=== PATIENT | female | born 1975 | race Asian ===

== ENCOUNTER → 2020-03-17 07:53 | Outpatient (CLI) | payer BC, SELFPAY ==
--- NOTE | 2020-03-17 | DI.RAD.S_ITS ---
PROCEDURE: FL BARIUM SWALLOW INDICATIONS: Gastro-esophageal reflux disease without esophagit COMPARISON: None. FINDINGS: Function: There is normal esophageal peristalsis. Single episode of slight elicited gastroesophageal reflux. There is normal transit of a calibrated barium tablet through the esophagus into the stomach. Morphology: Air-contrast images demonstrate normal mucosal morphology. Single contrast views show no esophageal strictures, extrinsic mass effects, or diverticula. Limited images of the stomach demonstrate normal appearance. Note is made of a superior directed 4.1 cm diameter transverse duodenal diverticulum. IMPRESSION: No hiatal hernia or stricture found. Single episode of slight gastroesophageal reflux observed over the course of the study. Incidental note is made of a superior directed 4.1 cm diameter transverse duodenal diverticulum, showing no sign of adjacent inflammation. These generally are asymptomatic but can produce symptoms is obstructed and inflamed. Dictated by: Bandar Olivia M.D. on 03/17/2020 at 12:02 Approved by: Bandar Olivia M.D. on 03/17/2020 at 12:04
== END ==
PROVIDERS: Referring Provider Physician Assistant; Visit Provider Physician Assistant
DX: K21.9 Gastro-esophageal reflux disease without esophagitis (principal); K57.10 Diverticulosis of small intestine without perforation or abscess without bleeding
CPT/HCPCS: 74220

== ENCOUNTER → 2020-05-17 09:34 | Outpatient (CLI) | payer BC, SELFPAY ==
--- NOTE | 2020-05-17 | DI.US.S_ITS ---
PROCEDURE: US ABDOMEN COMPLETE INDICATIONS: unspecified abdominal pain TECHNIQUE: Real-time scanning was performed of the abdominal and retroperitoneal organs, with image documentation. COMPARISON: None. FINDINGS: Liver: Liver is normal in size and homogeneous in echotexture. Gallbladder: No findings of gallstones or sludge are seen. The gallbladder wall is not thickened, measuring 3 mm or less. No specific pericholecystic fluid is seen. The sonographic Brooke sign is negative. Biliary ducts: Intrahepatic bile ducts are non-dilated. Extrahepatic bile duct caliber measures 2-3 mm. Normal is 6-7 mm or less in diameter, or 10 mm or less post-cholecystectomy. Pancreas: Visualized portions of the pancreas are sonographically normal. Spleen: Spleen is normal in size and homogeneous in echotexture. Kidneys: Kidneys are normal in size and echotexture. Right kidney measures 10.3 cm long; left kidney measures 10.4 cm long. No hydronephrosis or nephrolithiasis. No solid masses. Aorta: Visualized aorta is normal in caliber at less than 3 cm. Iliacs: Proximal common iliac arteries are normal in caliber at less than 2.5 cm. IVC: Intrahepatic inferior vena cava is patent. Miscellaneous: No free abdominal fluid. IMPRESSION: No imaging explanation is found for this patient's presenting symptoms. The gallbladder demonstrates a normal sonographic appearance. No biliary dilatation is seen. Dictated by: Tavo Guerrero M.D. on 05/17/2020 at 11:05 Approved by: Tavo Guerrero M.D. on 05/17/2020 at 11:06
== END ==
PROVIDERS: PCP Physician Assistant; Referring Provider Student in an Organized Health Care Education/Training Program; Visit Provider Student in an Organized Health Care Education/Training Program
DX: R10.9 Unspecified abdominal pain (principal)
CPT/HCPCS: 76700

== ENCOUNTER → 2020-05-21 11:26 | Outpatient (CLI) | payer BC, SELFPAY ==
[2020-05-22 20:41] LABS: COVID19 Sendout Not Detected (Not Detect)
== END ==
PROVIDERS: PCP Physician Assistant; Visit Provider Nurse Practitioner
DX: Z11.59 Encounter for screening for other viral diseases (principal)
CPT/HCPCS: 87635

== ENCOUNTER 2020-05-24 13:33 | Day surgery (SDC) | payer BC, SELFPAY ==
[2020-05-24] VITALS (7 sets, daily range): BP systolic 94–128; BP diastolic 7–78; PULSE 93–123; RESP 10–17; TEMP 36.2–37.2; O2SAT 100; BMI 19.7
--- NOTE | 2020-05-24 | PATH_ITS ---
[facility] Accession Number: [id number] . 01 Material submitted: . PART A: colon - TRANSVERSE POLYP PART B: colon - SIGMOID POLYP X2 . 01 Clinical history: . SDC . 02 Diagnosis: A. Transverse Colon Polyp, Biopsy: Tubular adenoma. . B. Sigmoid Colon Polyps, Biopsies: Tubular adenoma x2. [facility] 05/26/2020 1505 Local . 02 Electronically signed: . Walter Anton MD, PhD, Pathologist NPI- [id number] . 01 Gross description: . Part A: TRANSVERSE POLYP: Received in formalin is 1 fragment(s) of greene, soft tissue measuring 0.4 x 0.3 x 0.2 cm submitted entirely in 1 cassette(s) Part B: SIGMOID POLYP X2: Received in formalin are 2 fragment(s) of greene, soft tissue measuring 0.6 x 0.3 x 0.3 cm to 0.4 x 0.4 x 0.3 cm submitted entirely in 1 cassette(s) /[facility] 05/25/2020 0959 Local . 02 Pathologist provided ICD-10: D12.3, D12.5 . 02 CPT . 436705, [id number] Performed at: 01 [facility] [address], [place], [place] [id number] MD Reid Brown MD Phone: [phone] Performed at: [address] [facility] [address] [place], [place] [id number] MD Marialuisa Jensen MD Phone: [phone]
--- NOTE | 2020-05-24 11:49 | PM.HP.1 ---
History of Present Illness History of Present Illness Date Patient Seen: 05/24/20 Chief complaint: SDC Narrative: 44-year-old female seen at our office on 05/03/2020 due to constipation and abdominal pain who is here for colonoscopy. Please refer to the office note for further details Patient History Medical History (Updated 05/24/20 @ 14:09 by Yoko Cote RN) Abdominal pain (Acute) Anxiety (Acute) Change in bowel habits (Acute) Constipation (Acute) Duodenal diverticulum (Acute) Gastric reflux (Acute) Gastritis (Acute) Hiatal hernia (Acute) Surgical History (Updated 05/24/20 @ 14:08 by Yoko Cote RN) History of appendectomy (Acute) History of esophagogastroduodenoscopy (EGD) (Acute) Meds Home Medications and Allergies Home Medications Medication Instructions Recorded Confirmed Type esomeprazole magnesium [Nexium] 40 mg PO DAILY 05/24/20 05/24/20 History Allergies Allergy/AdvReac Type Severity Reaction Status Date / Time No Known Drug Allergies Allergy Verified 05/24/20 13:47 Exam Narrative Exam Narrative: General: Patient is well developed, not in apparent distress Cardiovascular: Regular rate and rhythm, no murmurs, rubs, or gallops; no evidence of edema; no palpable abdominal aortic aneurysm Gastrointestinal: Normoactive bowel sounds, soft, nontender, nondistended, no rebound tenderness, no hepatosplenomegaly, no evidence of hernia Assessment & Plan Assessment & Plan narrative: 44-year-old female here for further evaluation of constipation and abdominal pain by means colonoscopy Regarding the procedure(s), the risks and potential complications, benefits, and alternatives (including not doing the procedure) were discussed with the patient. The risks include but are not limited to bleeding, splenic injury, infection, perforation which may require surgical intervention, missed lesions, and adverse reactions to sedative medicines. After a question and answer period, the patient agreed to proceed with the procedure(s) and gives informed consent.
[2020-05-24] MEDS: SODIUM CHLORIDE 0.9% 1,000 ML 70 ML IV (13:45)
--- NOTE | 2020-05-24 14:19 | P.OP.ENDO_ITS ---
Operative Date/Time/Diagnoses Date of procedure: 05/24/20 Procedure Notes Procedure in detail: Surgeon: Javier Milton MD Procedure: Colonoscopy with polypectomy Preoperative diagnosis: Constipation, change in bowel habits Postoperative diagnosis: Polyps x3 status post polypectomy, grade 1 internal hemorrhoids Medications: Conscious sedation using 5 mg IV of Midazolam and 150 mcg IV of Fentanyl Preanesthesia Assessment An H and P was performed/updated and the Px?s ASA class is 1. The procedure was discussed in detail with the patient. The potential risks and complications including infection, bleeding, missed lesions, perforation, need for surgery in case of perforation, prolonged hospital stay, and were explained. A brief question and answer period was allotted and once all questions were answered, informed consent was obtained. The patient was brought back to the procedure room and placed on standard monitoring. The patient?s vital signs were monitored continuously throughout the entire procedure. Prior to starting, a timeout was performed to confirm the patient?s identity, allergies, medications, and procedure. Procedure in detail The patient was placed in left lateral decubitus position and once adequate sedation was obtained a FLORENCE was performed. The digital rectal examination did not reveal any palpable lesions. The tip of the colonoscope was placed in the anal canal and advanced without difficulty all the way to the cecum which was identified by the appendiceal orifice and the ileocecal valve. Careful examination of all anders of the colon was performed with irrigation of any residual stool. In the ascending colon, there was note of a 2 mm sessile polyp which was removed by means of cold Jumbo forceps. Resection and retrieval was complete with minimal bleeding In the sigmoid colon, there was note of 2 sessile polyps measuring 4 and 5 mm which were removed by means of cold snare. Resection and retrieval was complete with minimal bleeding Retroflexion was performed in the rectum which revealed grade 1 internal hemorrhoids The patient tolerated the procedure well and will be brought back to the recovery area to be discharged once criteria are met. The prep was judged to be good and adequate to identify polyps less than 5 mm. The withdrawal time was 9 minutes. The total physician intraservice time was 16 minutes. Complications There were no complications and estimated blood loss was minimal. Recommendations: Resume previous diet Continue outPx medications Follow up pathology results Repeat colonoscopy in 3 or 5 or 7 years depending on pathology results Call our office ([facility] [place] [facility]) to schedule follow-up with Dr. Espinoza in 2-3 weeks An emergency contact number was given to the patient for any complications related to the procedure
[2020-05-24] MEDS: MIDAZOLAM 5 MG/5 ML VIAL IV (14:22)
[2020-05-24] MEDS: fentaNYL 250 MCG/5 ML INJ IV (14:22)
[2020-05-24] MEDS: ONDANSETRON 4 MG/2 ML INJ IV (14:24)
== END 2020-05-24 15:50 | disposition home or self-care (01) ==
PROVIDERS: PCP Physician Assistant; Referring Provider Physician Assistant; Visit Provider Internal Medicine Gastroenterology
PROC: 0DJD8ZZ Inspection of Lower Intestinal Tract, Via Natural or Artificial Opening Endoscopic (ICD-10-PCS; CPT 45378; principal; 2020-05-24 14:30)
DX: K59.00 Constipation, unspecified (principal); D12.3 Benign neoplasm of transverse colon; D12.5 Benign neoplasm of sigmoid colon; K64.0 First degree hemorrhoids
CPT/HCPCS: 45385; 45380; J2250; J2405; J3010

== ENCOUNTER 2023-09-17 13:25 | Day surgery (SDC) | payer BC, SELFPAY ==
--- NOTE | 2023-09-17 13:56 | P.HP_ITS ---
History of Present Illness History of Present Illness Date Patient Seen: 09/17/23 Chief complaint: SDC Narrative: Personal history of colon polyps [facility] Medical History (Updated 05/24/20 @ 14:09 by Yoko Cote, RN) Constipation Change in bowel habits Anxiety Abdominal pain Gastric reflux Gastritis Duodenal diverticulum Hiatal hernia Surgical History (Updated 05/24/20 @ 14:08 by Yoko Cote RN) History of appendectomy History of esophagogastroduodenoscopy (EGD) Social History household members: spouse and children Smoking Status: Never smoker alcohol intake: current Meds Home Medications and Allergies Allergies Allergy/AdvReac Type Severity Reaction Status Date / Time No Known Drug Allergies Allergy Verified 09/17/23 13:51 Exam Narrative Exam Narrative: Oropharynx free of lesions Chest clear to auscultation percussion Cardiac exam reveals no S3 or murmur Assessment & Plan Assessment & Plan narrative: History of 3 tubular adenomas 3 years ago. Need for follow-up colonoscopy. Risks, benefits, alternatives have been explained.
--- NOTE | 2023-09-17 13:58 | PM.OP.COLON ---
Operative Date/Time/Diagnoses Date of procedure: 09/17/23 Pre-op diagnosis: See indication and findings Procedure & Clinicians Study performed: Colonoscopy Indications: History of colon polyps Surgeon: Henny Longo Procedure Notes Procedure in detail: After informed consent was obtained the patient was placed in left lateral decubitus position. The video colonoscope was placed in the rectum and slowly advanced cecum. Preparation was good. On slow withdrawal mucosa was carefully examined. Scope was removed. The patient tolerated procedure well. Blood loss none Complications none Sedation mac Findings 1. Normal colonoscopy to cecum Patient should have follow-up colonoscopy in 7 years.
[2023-09-17 13:59] VITALS: BP 125/80; PULSE 96; RESP 16; TEMP 36.4; O2SAT 100
[2023-09-17] MEDS: LACTATED RINGERS 1,000 ML 42 ML IV (14:14)
[2023-09-17 15:04] VITALS: BP 105/61; PULSE 97; RESP 14; TEMP 36.9; O2SAT 92
[2023-09-17 15:09] VITALS: BP 98/58; PULSE 89; RESP 20; TEMP 36.9; O2SAT 97
[2023-09-17 15:14] VITALS: BP 108/58; PULSE 81; RESP 18; TEMP 36.3; O2SAT 100
== END 2023-09-17 15:35 | disposition home or self-care (01) ==
LOC: ENDO 13:26
PROVIDERS: PCP Physician Assistant; Referring Provider Internal Medicine Gastroenterology; Visit Provider Internal Medicine Gastroenterology
PROC: 0DJD8ZZ Inspection of Lower Intestinal Tract, Via Natural or Artificial Opening Endoscopic (ICD-10-PCS; CPT 45378; principal; 2023-09-17 14:30)
DX: Z12.11 Encounter for screening for malignant neoplasm of colon (principal); K21.9 Gastro-esophageal reflux disease without esophagitis; Z86.010 Personal history of colon polyps
CPT/HCPCS: 45378; J2704